=== PATIENT | female | born 1985 | race Caucasian/White ===

== ENCOUNTER 2016-10-15 22:10 | Inpatient (IN) | payer OTHER ==
[~2016-10-15 22:10] MED LIST changes: -morphine 2 MG INJ IV ONE
--- NOTE | 2016-10-15 22:47 | HP ---
Date/Time of Note Date/Time of Note DATE: 10/15/16 TIME: 22:41 OB - History Hx of Present Free Text/Dictation 31 yo P1102 @ 18 wks 3 days, presents from ER w LOF since yesterday 9:30pm. She thinks her water broke. Sono shows viable fetus in cephalic position w oligo Patient is starting to feel some ctx Chief Complaint: PPROM Last Menstrual Period: Jun 08, 2017 Estimated Due Date: Mar 15, 2017 : 3 Para: 1102 Care: Limited Care Past Family/Social History * Past Medical, Surgical, Family and Obstetric Histories reviewed from chart. OB Admission Exam Physical Exam Abdomen: WNL OB Assessment/Plan Other Assessment: 31 yo P1102 @ 18 wks w PPROM - speculum exam did not show any fluid, but ROM plus test performed - cervix appears closed -sono shows fetus in cephalic position w oligo Other plan: Advised patient that induction of labor is indicated in pre-viable PPROM and that this would be the best course of action to avoid chorio and maternal morbidity Patient agreed to stay in hospital, but declines cytotec induction at this point and will reconsider it in a few hours she is having ctx and wants to wait and see if she starts to go into labor on her own. FERNANDO AVENDAÑO MD Oct 15, 2016 22:46
--- NOTE | 2016-10-16 05:44 | PN ---
Date/Time of Note Date/Time of Note DATE: 10/16/16 TIME: 05:44 OB Subjective Subjective Subjective Patient decided to leave against medical advice, despite risks of chorio, hemorrhage, maternal infection and and understanding that the fetus is non -viable. FERNANDO AVENDAÑO MD Oct 16, 2016 05:44
== END 2016-10-15 23:27 | disposition left against medical advice (07) | DRG 781 ==
LOC: L-D 22:10
PROVIDERS: ADMIT Obstetrics & Gynecology; ATTEND Obstetrics & Gynecology
DX: O26.892 Other specified pregnancy related conditions, second trimester (principal); Z3A.18 18 weeks gestation of pregnancy

== ENCOUNTER → 2016-10-15 | Emergency (ER) | payer OTHER ==
[~2016-10-15] VITALS: Ht 162.6 cm; Wt 93.5 kg
[~2016-10-15] MED LIST: ACET500C5 PO; BUTA1CAP38 PO; IBUPROFEN; LISINOPRIL; MUSCLE RELAXANT; NITR-58 PO; ONDA4TAB14 PO; [UNRECOGNIZED DRUG - REMARK]; [UNRECOGNIZED DRUG - REMARK]; morphine 2 MG INJ IV ONE; tylenol
[2016-10-15 19:49] VITALS: Ht 162.6 cm; Wt 93.5 kg
--- NOTE | 2016-10-15 20:55 | RADRPT ---
PROCEDURE: Obstetrical ultrasound greater than 14 weeks CLINICAL INDICATION: Pelvic pain. Clear fluid leaking from vagina TECHNIQUE: Real time sonographic imaging of the gravid uterus is performed transabdominally and mu ltiple static king scale and Doppler images are submitted for review as are measurements. The image s are reviewed on the PACS. COMPARISON: 07/24/2016 FINDINGS: There is a single living intrauterine gestation in cephalic to variable presentation. The he art beat is estimated at 139 bpm. The measurements are as follows: BPD:4.04 cm HC:15.01 cm AC:13.29 cm FL:2.86 cm Estimated gestational age is 18 weeks 3 days, appropriate interval growth compared to the prior stud y. The estimated date of delivery is 03/15/2017. The estimated weight is 253 grams. Placenta is anterior and grade 1. There is no evidence of placenta previa or abruption. The amniotic fluid index is low estimated at 3.6 cm. RPTAT:HJJR IMPRESSION: 1. Single viable intrauterine gestation estimated at 18 weeks 3 days, appropriate growth compared to the study of 07/24/2016, with the estimated date of delivery 03/15/2017. 2. Oligohydramnios, the amniotic fluid index 3.6 cm. Physician Kamini Date Time Electronically viewed and signed by Physician Kamini on 10/15/2016 20:54 JR/
[2016-10-15 21:28] LABS: ADD UMIC YES; URINE BILIRUBIN (Dip) NEGATIVE (NEGATIVE); URINE BLOOD (Dip) NEGATIVE (NEGATIVE); URINE COLOR LT. YELLOW (YELLOW); URINE GLUCOSE (Dip) NEGATIVE (NEGATIVE); URINE KETONES (Dip) NEGATIVE (NEGATIVE); URINE LEUKOCYTE ESTERASE (Dip) TRACE (NEGATIVE); URINE NITRITE (Dip) NEGATIVE (NEGATIVE); URINE TOTAL PROTEIN (Dip) NEGATIVE (NEGATIVE); URINE UROBILINOGEN (Dip) 0.2 E.U./dL (0.1-1.0)
[2016-10-15 21:39] LABS: BACTERIA,URINE MODERATE; SQUAMOUS EPITHELIAL CELL,UR MODERATE
[2016-10-15 21:40] LABS: URINE RBCS 2-5 (1+) /HPF (0)
[2016-10-15 22:20] LABS: BASOPHILS % 0.4 % (0.0-2.0); EOSINOPHILS # 0.1 10^3/ul (0.0-0.5); EOSINOPHILS % 0.7 % (0.0-7.0); HEMATOCRIT 34.3 % (37.0-47.0); HEMOGLOBIN 11.6 g/dl (12.0-16.0); LYMPHOCYTES # 1.9 10^3/ul (0.8-2.9); LYMPHOCYTES % 25.9 % (15.0-51.0); MEAN CORPUSCULAR HEMOGLOBIN 27.2 pg (29.0-33.0); MEAN CORPUSCULAR HGB CONC 33.8 g/dl (32.0-37.0); MEAN CORPUSCULAR VOLUME 80.7 fl (82.0-101.0); MEAN PLATELET VOLUME 8.8 fl (7.4-10.4); MONOCYTE # 0.4 10^3/ul (0.3-0.9); MONOCYTES % 5.5 % (0.0-11.0); NEUTROPHILS % 67.5 % (39.0-77.0); PLATELET COUNT 187 10^3/UL (140-440); RED BLOOD COUNT 4.25 10^6/ul (4.20-5.40); UNCORRECTED WBC 7.4 10^3/ul (4.8-10.8); WHITE BLOOD COUNT 7.4 10^3/ul (4.8-10.8)
[2016-10-15 22:22] LABS: CONDITION 1; LH ANALYZER COMMENTS 1
--- NOTE | 2016-10-16 02:59 | ERD ---
ER Documentation Chief Complaint Date/Time DATE: 10/16/16 TIME: 02:48 Chief Complaint 18 weeks , vag bleeding x 3 days , pelvic pain HPI The patient is a 31-year-old female who states that she is 17 weeks and 6 days here with clear fluid leaking from her vagina since yesterday and lower abdominal pain that she describes as cramping. Her pain is intermittent and begins in the suprapubic area that wraps around to her back. She states that these pains, approximately every 5-10 minutes. She describes them as "contractions ". She denies any bleeding, dysuria, flank pain, fever, chills, nausea, vomiting, diarrhea, recent illness, headache, visual changes, or any other symptoms or concerns at this time. She has 1 previous child and she delivered at 32 weeks gestation. The patient states that she has a surgical history of an appendectomy, right fallopian tube removal, and a right ovary removal. She denies medical history. ROS All systems reviewed and are negative except as per history of present illness. Medications Home Meds Discontinued Reported Medications [tylenol] No Conflict Check 06/09/13 [Same Per Pt] No Conflict Check 01/12/13 [Pt Forgot Dosages] No Conflict Check 12/07/12 [Lisinopril] No Conflict Check 12/07/12 [Ibuprofen] No Conflict Check 12/07/12 [Muscle Relaxant] No Conflict Check 12/07/12 Discontinued Scripts Ondansetron (Ondansetron Odt) 4 Mg Tab.rapdis, 4 MG PO DAILY Y for NAUSEA AND/ OR VOMITING for 10 Days, #10 TAB 0 Refills Prov:QUYEN GREENWOOD PA-C 07/24/16 Nitrofurantoin Monohyd Macrocr* (Macrobid*) 100 Mg Capsr, 100 MG PO BID for 7 Days, #14 CAP 0 Refills Prov:QUYEN GREENWOOD PA-C 07/24/16 Acetaminophen* (Tylophen*) 500 Mg Capsule, 1 CAP PO Q6H Y for PAIN AND OR ELEVATED TEMP for 5 Days, #20 CAP 0 Refills Prov:QUYEN GREENWOOD PA-C 07/24/16 Yigqutzsmd-Svobcmhvsvuks-Ryhwmlqj* (Fioricet*) 50-300-40 Mg Capsule, 1 CAP PO Q4H Y for HEADACHE, #30 CAP Prov:LINETTE MATHIS MD 01/23/16 Allergies Allergies: Coded Allergies: No Known Allergies (Verified Allergy, Mild, 06/02/14) PMhx/Soc Medical and Surgical Hx: pt denies Medical Hx, pt denies Surgical Hx History of Surgery: Yes (Ovarian) Anesthesia Reaction: No Hx Neurological Disorder: No Hx Respiratory Disorders: No Hx Cardiac Disorders: No Hx Psychiatric Problems: No Hx Miscellaneous Medical Probl: No Hx Alcohol Use: No Hx Substance Use: No Hx Tobacco Use: No Smoking Status: Never smoker Physical Exam Vitals Vital Signs Date Time Temp Pulse Resp B/P Pulse Ox O2 Delivery O2 Flow Rate FiO2 10/15/16 19:49 97.9 76 20 132/75 99 Physical Exam INITIAL VITAL SIGNS: Reviewed by me, afebrile, no tachycardia, no tachypnea, oximetry 99% on room air GENERAL: Alert. Well developed and well nourished. No acute distress. Nontoxic appearing. HEAD: Head is normocephalic. Atraumatic. EYES: EOMI. PERRL. No scleral icterus. No conjunctival injection. ENT: External ears, nose, and mouth normal. Nasal passages patent. Moist mucous membranes. NECK: Supple. Full range of motion. Trachea midline. RESPIRATORY: No tachypnea. Clear to auscultation bilaterally. No wheezing, rales , or rhonchi. CV: Regular rate and rhythm. No murmurs, rubs, or gallops ABDOMEN: + Mild right lower quadrant tenderness to palpation. Soft, rounded/ gravid. No guarding. No rebound. Bowel sounds normal in all quadrants. BACK: No CVA tenderness. Full ROM. EXTREMITIES: No obvious deformity. No clubbing or cyanosis. No edema. SKIN: Warm and dry. No diaphoresis. No obvious rashes or lesions. NEUROLOGIC: Alert and oriented x 3. Appropriate. Face is symmetric. Speech is normal. Moves all extremities equally. Result Diagram: 10/15/162114 Results 24 hrs Laboratory Tests Test 10/15/16 20:36 10/15/16 21:15 Urine Bacteria MODERATE Urine Bilirubin NEGATIVE Urine Clarity SLIGHTLY CLOUDY Urine Color LT. YELLOW Urine Glucose NEGATIVE% Urine Hemoglobin NEGATIVE Urine Ketones NEGATIVE Urine Leukocyte Esterase TRACE Urine Microscopic RBC 2-5 (1+)/HPF Urine Microscopic WBC 2-5/HPF Urine Nitrite NEGATIVE Urine Specific Mason <=1.005 Urine Squamous Epithelial Cells MODERATE Urine Total Protein NEGATIVE Urine Urobilinogen 0.2 E.U./dL Urine pH 5.5 Basophils # 0.010^3/ul Basophils % 0.4% Beta HCG, Quantitative 95817.0mIU/ml Blood Morphology Comment Eosinophils # 0.110^3/ul Eosinophils % 0.7% Hematocrit 34.3% Hemoglobin 11.6g/dl Lymphocytes # 1.910^3/ul Lymphocytes % 25.9% Mean Corpuscular Hemoglobin 27.2pg Mean Corpuscular Hemoglobin Concent 33.8g/dl Mean Corpuscular Volume 80.7fl Mean Platelet Volume 8.8fl Monocytes # 0.410^3/ul Monocytes % 5.5% Neutrophils # 5.010^3/ul Neutrophils % 67.5% Nucleated Red Blood Cells # 0.010^3/ul Nucleated Red Blood Cells % 0.0/100WBC Platelet Count 31149^3/UL Red Blood Count 4.2510^6/ul Red Cell Distribution Width 24.0% White Blood Count 7.410^3/ul Current Medications Medications (Trade) Dose Ordered Sig/Agapito Route PRN Reason Start Time Stop Time Status Last Admin Dose Admin Morphine Sulfate (morphine) 2 mg ONCE ONCE IV 10/15/16 20:30 10/15/16 20:31 DC 10/15/16 21:17 DIAGNOSTIC IMAGING REPORT Patient: ANDIE CARR : 1985 Age: 31 Sex: F MR #: [id number] DOS: 10/15/162024 Ordering MD: LAKISHA ESCOBAR NP Location: [facility] Room/Bed: PROCEDURE: Obstetrical ultrasound greater than 14 weeks CLINICAL INDICATION: Pelvic pain. Clear fluid leaking from vagina TECHNIQUE: Real time sonographic imaging of the gravid uterus is performed transabdominally and multiple static king scale and Doppler images are submitted for review as are measurements. The images are reviewed on the PACS. COMPARISON: 07/24/2016 FINDINGS: There is a single living intrauterine gestation in cephalic to variable presentation. The heart beat is estimated at 139 bpm. The measurements are as follows: BPD: 4.04 cm HC: 15.01 cm AC: 13.29 cm FL: 2.86 cm Estimated gestational age is 18 weeks 3 days, appropriate interval growth compared to the prior study. The estimated date of delivery is 03/15/2017. The estimated weight is 253 grams. Placenta is anterior and grade 1. There is no evidence of placenta previa or abruption. The amniotic fluid index is low estimated at 3.6 cm. RPTAT:HJJR IMPRESSION: 1. Single viable intrauterine gestation estimated at 18 weeks 3 days, appropriate growth compared to the study of 07/24/2016, with the estimated date of delivery 03/15/2017. 2. Oligohydramnios, the amniotic fluid index 3.6 cm. Roel Raymond Physician Date Time Electronically viewed and signed by Roel Raymond Physician on 10/15/2016 20:54 JR/ CC: LAKISHA ESCOBAR, CONSUELO Procedures/MDM Nursing Notes Reviewed Previous Medical Records requested via [employer]. EMERGENCY DEPARTMENT COURSE / MEDICAL DECISION MAKING: The patient comes to the ED secondary to clear fluid leaking from her vagina and lower abdominal pain for the past 2 days. Differential diagnosis upon initial evaluation includes but is not limited to: Dehydration, urinary tract infection, pyelonephritis, threatened , and others. The case was discussed with supervising physician Dr. Hanson. The patient was treated with morphine [address] Hanson. CBC: no e/o of systemic infection or severe anemia CMP: no e/o severe acidosis, alkalosis, renal failure, diabetic ketoacidosis, liver disease Urine: Trace leukocyte Estrace, 2-5 WBCs; perhaps early UTI Otherwise within normal limits, unremarkable, or as documented above. OB ultrasound per radiology report: IMPRESSION: 1. Single viable intrauterine gestation estimated at 18 weeks 3 days, appropriate growth compared to the study of 07/24/2016, with the estimated date of delivery 03/15/2017. 2. Oligohydramnios, the amniotic fluid index 3.6 cm. The patient's laboratory and ultrasound findings were discussed by Dr. Hanson with the laborist. The patient will be admitted for further observation and workup. Departure Diagnosis: Primary Impression: Threatened in second trimester Condition: Stable LAKISHA ESCOBAR, [employer] OPERATOR APPRENTICE Oct 16, 2016 02:59
== END | disposition home or self-care (01) ==
LOC: FTE 18:27
DX: O20.0 Threatened abortion (principal); Z3A.18 18 weeks gestation of pregnancy
CPT/HCPCS: 36415; 76805; 81001; 81003; 84702; 85025; 86900; 86901; 96374; J2270; Z7502

== ENCOUNTER 2017-11-12 15:02 | Emergency (ER) | END 2017-11-12 20:10 | disposition home or self-care (01) ==

== ENCOUNTER 2019-03-21 13:05 | Emergency (ER) | payer OTHER ==
[~2019-03-21] VITALS: Ht 162.6 cm; Wt 103.0 kg
[~2019-03-21 13:05] MED LIST changes: -ACET500C5 PO; -BUTA1CAP38 PO; +CYCL10TA7 PO; -IBUPROFEN; -LISINOPRIL; -MUSCLE RELAXANT; -NITR-58 PO; -ONDA4TAB14 PO; +TRAM50TA2 PO; -[UNRECOGNIZED DRUG - REMARK]; -[UNRECOGNIZED DRUG - REMARK]; -tylenol
[2019-03-21 13:08] VITALS: Ht 162.6 cm; Wt 103.0 kg
[2019-03-21] MEDS ORDERED: ONDANSETRON 4 MG INJ IV STA (13:19)
[2019-03-21] MEDS ORDERED: SOD CHLORIDE 0.9% 1,000 ML IV STA (13:19)
[2019-03-21] MEDS ORDERED: FAMOTIDINE 20 MG INJ IV STA (14:46)
[2019-03-21] MEDS ORDERED: LIDOCAINE/MYLANTA 40 ML BTL PO STA (14:46)
[2019-03-21] MEDS ORDERED: BELLADONNA/PHENOBARBITAL TAB PO STA (14:46)
--- NOTE | 2019-03-21 14:50 | ERD ---
ER Documentation Chief Complaint Chief Complaint C/O INTERMITTENT VOMITING /DIARRHEA AND DIZZINESS X 2 MONTHS HPI This is a 33-year-old female with a past medical history of chronic pain, chronic nausea, chronic anemia, heavy menses, gastritis who is presenting with exacerbated epigastric abdominal pain, nausea, few episodes of nonbilious nonbloody vomiting, general fatigue and weakness, intermittent lightheadedness and chronic full body pain. The patient reports several months of intermittent waxing and waning ongoing symptoms. She has been worked up fully in an outpatient setting without any clear diagnoses. The patient reports exacerbated symptoms over the last 1 to 2 days and now presents to the ER for this. The [facility] does not have any nausea medicine at home. The patient does not endorse any alleviating or exacerbating factors. The patient denies changes to bowel movements or urination. She denies constipation or diarrhea. She does not endorse black or bloody or tarry stools. She does not endorse dysuria or hematuria or urgency or frequency. She does not endorse any current vaginal discharge or burning or pain. She does endorse mild vaginal bleeding, as she is on her last day of her menstrual period. She does not believe she could be . She does not believe she could have a sexually transmitted infection. The patient denies fever or chills. The patient has had no headache or vision changes. The patient does not endorse neck or back pain. The patient has had no chest pain or trouble breathing. The patient has had no focal deficits. The patient has had no weakness or numbness or tingling to the face or extremities. ROS All systems reviewed and are negative except as per history of present illness. Medications Home Meds Active Scripts Cyclobenzaprine Hcl* (Cyclobenzaprine Hcl*) 10 Mg Tablet, 10 MG PO TID, #20 TAB Prov:SHARON PERKINS MD 11/12/17 Tramadol HCl (Tramadol HCl) 50 Mg Tablet, 50 MG PO Q4 PRN for PAIN, #20 TAB Prov:SHARON PERKINS MD 11/12/17 Allergies Allergies: Coded Allergies: No Known Allergies (Verified Allergy, Mild, 06/02/14) PMhx/Soc History of Surgery: Yes (Ovarian, c/sx1, appendectomy) Anesthesia Reaction: No Hx Neurological Disorder: No Hx Respiratory Disorders: No Hx Cardiac Disorders: No Hx Psychiatric Problems: No Hx Miscellaneous Medical Probl: Yes (Chronic pain, chronic nausea, chronic anemia, gastritis) Hx Alcohol Use: No Hx Substance Use: No Hx Tobacco Use: No FmHx Family History: No diabetes Physical Exam Vitals Vital Signs Date Temp Pulse Resp B/P (MAP) Pulse Ox O2 O2 Flow FiO2 Time Delivery Rate 03/21/19 98.0 87 18 156/79 99 13:08 (104) Physical Exam Const: No apparent distress, well-developed, well-nourished Head: Normocephalic, Atraumatic Eyes: Normal Conjunctiva. Extraocular movements intact. Pupils equal, round and reactive to light ENT: Normal External Ears, Nose and Mouth. Neck: Full range of motion. No meningismus. Resp: Clear to auscultation bilaterally, No wheezes, rales or rhonchi Cardio: Regular rate and rhythm. No murmurs, rubs or gallops Abd: Soft, non distended. Mild epigastric tenderness. No guarding or rebound. Normal bowel sounds Skin: No petechiae or rashes Back: No midline tenderness. No CVA tenderness Ext: No cyanosis, or edema Neur: Awake and alert, oriented 4. Cranial nerves intact. No facial droop. Normal strength, sensation and coordination. Psych: Normal Mood and Affect Result Diagram: 03/21/19 1335 03/21/19 1335 Results 24 hrs Laboratory Tests Test 03/21/19 13:35 03/21/19 13:41 White Blood Count 5.7 10^3/ul Red Blood Count 4.99 10^6/ul Hemoglobin 13.7 g/dl Hematocrit 41.0 % Mean Corpuscular Volume 82.2 fl Mean Corpuscular Hemoglobin 27.5 pg Mean Corpuscular Hemoglobin Concent 33.4 g/dl Red Cell Distribution Width 21.7 % Platelet Count 199 10^3/UL Mean Platelet Volume 9.2 fl Immature Granulocytes % 0.200 % Neutrophils % 62.1 % Lymphocytes % 30.2 % Monocytes % 5.4 % Eosinophils % 1.6 % Basophils % 0.5 % Nucleated Red Blood Cells % 0.0 /100WBC Immature Granulocytes # 0.010 10^3/ul Neutrophils # 3.6 10^3/ul Lymphocytes # 1.7 10^3/ul Monocytes # 0.3 10^3/ul Eosinophils # 0.1 10^3/ul Basophils # 0.0 10^3/ul Nucleated Red Blood Cells # 0.0 10^3/ul Urine Color YELLOW Urine Clarity SLIGHTLY CLOUDY Urine pH 6.0 Urine Specific [place] 1.009 Urine Ketones NEGATIVE mg/dL Urine Nitrite NEGATIVE mg/dL Urine Bilirubin NEGATIVE mg/dL Urine Urobilinogen NEGATIVE mg/dL Urine Leukocyte Esterase NEGATIVE Yadiel/ul Urine Microscopic RBC 75 /HPF Urine Microscopic WBC 4 /HPF Urine Squamous Epithelial Cells FEW /HPF Urine Bacteria FEW /HPF Urine Mucus FEW /HPF Urine Hemoglobin 3+ mg/dL Urine Glucose NEGATIVE mg/dL Urine Total Protein NEGATIVE mg/dl Sodium Level 142 mmol/L Potassium Level 4.1 mmol/L Chloride Level 108 mmol/L Carbon Dioxide Level 23 mmol/L Anion Gap 11 Blood Urea Nitrogen 9 mg/dl Creatinine 0.55 mg/dl Est Glomerular Filtrat Rate mL/min > 60 mL/min Glucose Level 86 mg/dl Calcium Level 9.5 mg/dl Total Bilirubin 0.2 mg/dl Direct Bilirubin 0.00 mg/dl Indirect Bilirubin 0.2 mg/dl Aspartate Amino Transf (AST/SGOT) 25 IU/L Alanine Aminotransferase (ALT/SGPT) 32 IU/L Alkaline Phosphatase 82 IU/L Total Protein 7.9 g/dl Albumin 4.3 g/dl Globulin 3.60 g/dl Albumin/Globulin Ratio 1.19 Lipase 122 U/L POC Beta HCG, Qualitative NEGATIVE Current Medications Medications Dose Sig/Agapito Start Time Status Last (Trade) Ordered Route PRN Stop Time Admin Dose Reason Admin Sodium 1,000 ml @ Q1H STAT 03/21/19 DC 03/21/19 Chloride 1,000 mls/hr IV 13:19 14:08 03/21/19 14:18 Ondansetron 4 mg ONCE STAT 03/21/19 DC 03/21/19 HCl (Zofran IV 13:19 14:08 Inj) 03/21/19 13:21 Famotidine 20 mg ONCE STAT 03/21/19 DC 03/21/19 (Pepcid Iv) IV 14:46 15:11 03/21/19 15:05 40 ml ONCE STAT 03/21/19 DC 03/21/19 Miscellaneous PO 14:46 15:11 Medication 03/21/19 15:05 (Gi Cocktail (2)) Belladonna/ 2 tab ONCE STAT 03/21/19 DC 03/21/19 Phenobarbital PO 14:46 15:11 () 03/21/19 15:05 Procedures/MDM MDM The patient's presentation warrants further investigation. Previous medical records, if available, were reviewed. LABS The patient's laboratory testing was obtained and reviewed. No emergent treatment was required unless described below. CBC: No E/o systemic infection or severe anemia or thrombocytopenia Chemistry: No E/o severe acidosis or alkalosis or renal failure or liver disease or diabetic ketoacidosis Lipase: No E/o pancreatitis Urine: No E/o acute infection. + Hematuria hCG: Negative EKG EKG read by me: Rate/Rhythm: Sinus bradycardia at 50 bpm Intervals: Normal [place]: Normal Impression: T wave inversion in lead III and V1, likely normal variant. No evidence of acute ischemia. Sinus bradycardia. IMAGING Imaging and Radiology interpretation reviewed. CXR FINDINGS: The heart and mediastinum are within normal limits. The lungs are clear. There is no pleural effusion or pneumothorax. The bones and soft tissue show no acute change. IMPRESSION: No definite abnormalities are identified. Electronically viewed and signed by Satish Jimenez Physician on 03/21/2019 14:51 TREATMENT/DISPOSITION The patient presents for symptoms most consistent with exacerbated chronic pain and nausea. The patient was fully evaluated in the emergency department. The patient does have epigastric pain and a history of gastritis. She was treated with IV fluids, Zofran, Pepcid and a GI cocktail with some improvement of her discomfort. The patient is not anemic. I do not suspect emergent peptic ulcer disease or ulceration. There is no evidence of pneumoperitoneum, and I have low suspicion for viscus perforation. The patient does not have any evidence of peritonitis. The patient does not have clinical symptoms concerning for mesenteric ischemia or ischemic colitis. The patient does not have right upper quadrant tenderness, and I have low suspicion for gallstones, cholecystitis or biliary colic. The patient does not have left upper quadrant tenderness. I have low suspicion for pancreatitis. The patient does not have any right lower quadrant tenderness, or periumbilical tenderness. I have low suspicion for appendicitis. The patient does not have suprapubic tenderness. I have decreased suspicion for cystitis. The patient does not have any left lower quadrant tenderness, and I have low suspicion for diverticulosis or diverticulitis. The patient does not have any flank tenderness. I have decreased suspicion for nephrolithiasis or renal colic. The patient does not have any palpable pulsatile mass or severe abdominal pain radiating to the back. I have low suspi cion for aortic aneurysm, dissection or rupture. The patient is not . The patient does have evidence of hematuria, but she is currently on her menses, which could be related to her symptoms. That said, the patient is currently not anemic. The patient does not endorse symptoms concerning for a sexually transmitted infection. I do not suspect tubo-ovarian abscess or ovarian torsion or PID or ectopic . The patient also endorses lightheadedness. The patient presents after a s yncopal event. The patient has a reassuring physical exam. The patient is not clinically orthostatic. The patient is not dizzy. I have decreased suspicion for vertigo. The patient has no signs of emergent or symptomatic anemia. The patient does not have any emergent electrolyte or metabolic emergencies. I have decrease suspicion for a thyroid disorder. The patient is not toxic appearing. I have decreased suspicion for an infectious etiology of symptoms. The patient's EKG is reassuring. I have low suspicion for acute coronary syndrome. I do not see evidence of any emergent cardiac arrhythmia, which includes but is not limited to heart block, Brugada syndrome or WPW. The patient has no heart murmurs or rales. There is no evidence of cardiomegaly on exam or chest xray. I have low suspicion for hypertrophic cardiomyopathy. I do not see evidence of CHF. The patient does not endorse any chest or pleuritic pain. The history is negative for bleeding or clotting disorders. The patient has not been involved in any recent prolonged trips or surgeries or hospitalizations. The patient has no calf tenderness or swelling. I have decreased suspicion for PE as the etiology of symptoms. The patient has no focal deficits. The neurologic exam is reassuring. I have decreased suspicion for cerebral ischemia. There was no trauma or injury. There is no personal or family history of cerebral aneurysm. I have decreased suspicion for SAH or other ICH. I have low suspicion for temporal arteritis, cav ernous venous thrombosis, subdural hematoma, epidural hematoma, meningitis. The Miller Syncope Rule was applied and the patient was found to be low risk for a serious outcome. DISCHARGE Upon reevaluation of the patient, symptoms have improved. No emergent diagnoses were identified. At this time, I feel that the patient stable for discharge. The patient was instructed to follow-up with a primary care physician in 1-3 days. The patient will be given strict precautions with which to return to the emergency department. Prescriptions: Daniela Meeks The patient's blood pressure was elevated at greater than 120/80 while in the emergency department. The patient was otherwise stable with no evidence of hypertensive urgency or emergency. The patient does not require admission for blood pressure control. I have discussed with the patient the risks of hypertension. I have instructed the patient to return to the ER for any new or worsening symptoms including chest pain, shortness of breath, headache, blurred vision, confusion, nausea, vomiting or LOC. I have advised the patient to follow up with the primary care physician for outpatient monitoring and treatment for hypertension in 1-3 days. Disclaimer: Inadvertent spelling and grammatical errors are likely due to EHR/dictation software use and do not reflect on the overall quality of patient care. Note that the electronic time recorded on this note does not necessarily reflect the actual time of the patient encounter. Departure Diagnosis: Primary Impression: Nausea & vomiting Vomiting type: unspecified Vomiting Intractability: non-intractable Qualified Codes: R11.2 - Nausea with vomiting, unspecified Additional Impressions: Multiple complaints Epigastric pain Chronic pain Chronic pain type: other chronic pain Qualified Codes: G89.29 - Other chronic pain Menses regular with excessive bleeding Menorrahagia type: with regular cycle Qualified Codes: N92.0 - Excessive and frequent menstruation with regular cycle Condition: Stable Patient Instructions: Chronic Pain, Epigastric Pain (Uncertain Cause), Nausea and Vomiting-Adult, Understanding the Normal Menstrual Cycle Additional Instructions: Thank you for for coming to [facility] for your care today. Please ask your nurse or provider if you have questions about your care today and do not leave until all your questions have been answered. Please use any medications given as directed and follow-up with your doctor (or the doctor you were referred to) in the next 1-3 days. If you do not have a primary care doctor you may [place] up at [place] [facility] [place] [facility] (listed below). You may also use motrin and tylenol as needed for fever and/or pain unless instructed otherwise by your provider or nurse. Indications for more urgent follow-up have been discussed, but you may return to the Emergency Department at ANY time for any worrisome or worsening symptoms. If you have abdominal pain, please know that no test or exam you received is perfect and you should follow up within 8 hours for continued pain. If you had any imaging studies today, such as an X-Ray or CT Scan, these studies will be reviewed later by a radiologist. You will be called if there are important findings that were not identified today, so make sure the contact information you provided at registration is correct. If you received any narcotic pain control medicine today, such as Vicodin, Morphine or Dilaudid, your coordination and judgment may be affected for a number of hours. Please do not drive or operate heavy machinery, and you may want someone to assist you at home. If you were given a prescription for narcotic medication, be aware that it is very addictive- use sparingly and only if necessary. PLEASE SEEK FURTHER EVALUATION AND MANAGEMENT AT YOUR DOCTORS OFFICE WITHIN THE NEXT 1-3 DAYS. IT IS YOUR RESPONSIBILITY TO MAKE AN APPOINTMENT FOR FOLOW-UP CARE. IF YOU HAVE A PRIMARY DOCTOR, PLEASE CALL THEIR OFFICE TO SCHEDULE AN APPOINTMENT FOR FOLLOW UP. IF YOU DO NOT HAVE A PRIMARY DOCTOR YOU CAN CALL OUR PHYSICIAN REFERRAL HOTLINE AT IF YOU CAN NOT AFFORD TO SEE A PHYSICIAN YOU CAN CHOSE FROM THE FOLLOWING PERSON [facility]: [facility] [address] [facility] [address] [facility]. [facility] [address] [facility] [address] [facility] [address] [facility]. [facility]. [address] ENRICO LAMBERT MD Mar 21, 2019 14:45
[2019-03-21] MEDS ORDERED: FAMO-96 PO (15:48)
[2019-03-21] MEDS ORDERED: ONDA4TAB8 PO (15:48)
[2019-03-21 16:03] VITALS: BP 130/66; PULSE 56; RESP 18
== END 2019-03-21 16:04 | disposition home or self-care (01) ==
LOC: FTE 13:05
DX: N92.0 Excessive and frequent menstruation with regular cycle (principal); R11.2 Nausea with vomiting, unspecified; G89.29 Other chronic pain
CPT/HCPCS: 36415; 71045; 80053; 81001; 81025; 83690; 85025; 93005; 96361; 96374; 96375; J2405; J7030; Z7502; Z7610